=== PATIENT | male | born 1975 | race Caucasian/White ===

== ENCOUNTER 2018-06-19 12:07 | Outpatient (CLI) | payer MEDICAID ==
[2018-06-19 12:31] LABS: MUDS CUTOFF CONCENTRATIONS CUTOFF CONC BELOW:
[2018-06-19 12:45] LABS: COCAINE SCREEN URINE NEGATIVE (NEGATIVE); METHAMPHETAMINES SCREEN, URINE NEGATIVE (NEGATIVE); OPIATE SCREEN, URINE NEGATIVE (NEGATIVE)
[2018-06-19 12:46] LABS: AMPHETAMINE SCREEN,URINE POSITIVE (NEGATIVE); BENZODIAZEPINES SCREEN, URINE NEGATIVE (NEGATIVE); METHADONE SCREEN, URINE NEGATIVE (NEGATIVE); OXYCODONE SCREEN, URINE NEGATIVE (NEGATIVE); PROPOXYPHENE SCREEN, URINE NEGATIVE (NEGATIVE); TRICYCLIC ANTIDEPRESSANT,URINE NEGATIVE (NEGATIVE)
== END 2018-06-19 12:08 | disposition home or self-care (01) ==
LOC: LAB 12:07
PROVIDERS: ATTEND Licensed Practical Nurse
DX: F43.10 Post-traumatic stress disorder, unspecified (principal); Z79.899 Other long term (current) drug therapy
CPT/HCPCS: 80306

== ENCOUNTER 2018-07-21 12:13 | Outpatient (CLI) | payer MEDICAID ==
[2018-07-21 12:56] LABS: MUDS CUTOFF CONCENTRATIONS CUTOFF CONC BELOW:
[2018-07-21 13:27] LABS: COCAINE SCREEN URINE NEGATIVE (NEGATIVE)
[2018-07-21 13:28] LABS: AMPHETAMINE SCREEN,URINE POSITIVE (NEGATIVE); BENZODIAZEPINES SCREEN, URINE NEGATIVE (NEGATIVE); METHADONE SCREEN, URINE NEGATIVE (NEGATIVE); METHAMPHETAMINES SCREEN, URINE NEGATIVE (NEGATIVE); OPIATE SCREEN, URINE NEGATIVE (NEGATIVE); OXYCODONE SCREEN, URINE NEGATIVE (NEGATIVE); PROPOXYPHENE SCREEN, URINE NEGATIVE (NEGATIVE); TRICYCLIC ANTIDEPRESSANT,URINE NEGATIVE (NEGATIVE)
== END 2018-07-21 12:14 | disposition home or self-care (01) ==
LOC: LAB 12:13
PROVIDERS: ATTEND Licensed Practical Nurse
DX: Z79.899 Other long term (current) drug therapy (principal)
CPT/HCPCS: 80306

== ENCOUNTER 2018-10-23 11:01 | Outpatient (CLI) | payer MEDICAID ==
[2018-10-23 11:22] LABS: BASOPHILS # (AUTO) 0.1 10^3/uL (0.0-0.1); BASOPHILS % (AUTO) 1.2 %; EOSINOPHILS # (AUTO) 0.2 10^3/uL (0.0-0.7); EOSINOPHILS % (AUTO) 3.6 %; HGB - HEMOGLOBIN 13.9 g/dL (14.0-18.0); LYMPHOCYTES # (AUTO) 1.3 10^3/uL (1.5-3.5); LYMPHOCYTES % (AUTO) 21.1 %; MEAN CORPUSCULAR HEMOGLOBIN 29.8 pg (27.0-31.0); MEAN CORPUSCULAR HGB CONC 34.9 g/dL (32.0-36.0); MEAN CORPUSCULAR VOLUME 85.5 fL (80.0-94.0); MEAN PLATELET VOLUME 6.9 fL (7.4-11.4); MONOCYTES # (AUTO) 0.3 10^3/uL (0.0-1.0); MONOCYTES % (AUTO) 5.2 %; NEUTROPHILS # (AUTO) 4.2 10^3/uL (1.5-6.6); NEUTROPHILS % (AUTO) 68.9 %; PLT - PLATELET COUNT 189 10^3/uL (130-450); RED BLOOD COUNT 4.65 10^6/uL (4.70-6.10); RED CELL DISTRIBUTION WIDTH 13.1 % (12.0-15.0)
[2018-10-23 11:30] LABS: ALBUMIN 4.4 g/dL (3.2-5.5); ALBUMIN/GLOBULIN RATIO 1.8 (1.0-2.2); BILIRUBIN,TOTAL 0.9 mg/dL (0.2-1.0); CALCIUM 9.1 mg/dL (8.5-10.3); CREATININE 0.8 mg/dL (0.6-1.2); TOTAL PROTEIN 6.9 g/dL (6.7-8.2)
[2018-10-23 11:40] LABS: HB2 TOTAL 15.3 g/dL; HEMOGLOBIN A1C 0.58 g/dL; HEMOGLOBIN A1C % 5.6 % (4.6-6.2)
== END 2018-10-23 11:02 | disposition home or self-care (01) ==
LOC: LAB 11:01
PROVIDERS: ATTEND Licensed Practical Nurse
DX: F90.9 Attention-deficit hyperactivity disorder, unspecified type (principal); F43.10 Post-traumatic stress disorder, unspecified; Z79.899 Other long term (current) drug therapy
CPT/HCPCS: 36415; 80053; 83036; 84443; 85025